=== PATIENT | female | born 1980 | race Caucasian/White ===

== ENCOUNTER → 2024-01-20 13:14 | Outpatient (REF) | payer OTHER, SELFPAY | LOC: WDC 13:14 | PROVIDERS: ATTENDING PHYSICIAN Obstetrics & Gynecology; FAMILY PHYSICIAN Family Medicine | DX: Z12.31 Encounter for screening mammogram for malignant neoplasm of breast (principal) | CPT/HCPCS: 77063; 77067 ==

== ENCOUNTER 2025-01-17 12:39 | Emergency (ER) | payer OTHER, SELFPAY ==
[2025-01-17 12:44] VITALS: BP 152/99
[2025-01-17 13:50] VITALS: BMI 25.2
[2025-01-17 13:53] VITALS: BP 130/93
[2025-01-17 13:56] VITALS: BP 130/93
[2025-01-17 14:01] VITALS: BP 133/87
[2025-01-17] MEDS: TYLENOL 650 MG PO (14:15)
--- NOTE | 2025-01-17 14:15 | ED.GENMED ---
History of Present Illness
General
Chief Complaint: Headache
Source: patient
Exam Limitations: none
Time Seen by Provider: 01/17/25 13:58
Nursing documentation reviewed up to this point in time: agreed with
History of Present Illness
History of Present Illness:
Patient is a 44 year-old female presenting to the emergency department for evaluation of headache. She states that on Monday evening, she hit the back of her head on her son�s bunk bed while trying to get into it. She�s denies any loss of
consciousness. She reports persistent headache which seems migrate around head. Pain has not worsened although has remained constant all week. She reports very mild associated nausea and brain fog today. She denies vomiting, dizziness, ataxia,
dysarthria, or confusion. She is not on any anticoagulation.
Patient contacted her primary care provider who recommended that if her headache persisted throughout the week she come to the emergency department for a CT scan.
Review of Systems
Review of Systems
Allergies reviewed?: Yes
All Other Systems: ROS reviewed and negative except as documented in HPI and ROS
Phy Exam
Physical Exam
Physical Exam:
Vitals: Hypertensive, otherwise stable vital signs. Afebrile
General: Patient is well appearing, no acute distress
Skin: Warm and dry, no rashes or lesions.
Head: Normocephalic, atraumatic. No obvious contusions or lacerations.
Throat: Protecting airway.
Neck: Normal ROM, no cervical spine tenderness
Cardiac: Regular rate and rhythm. No murmurs
Pulm: No apparent respiratory distress. Lungs clear bilaterally.
Abdomen: Nondistended
Extremities: B/l upper and lower extremities atraumatic and nontender with full ROM. Strength 5/5 bilaterally with sensation grossly intact.
Neuro: A&Ox3. CN II-XII grossly intact on examination. Normal finger to nose.
Psychiatric: Normal affect.
Course
Orders/Labs/Results
Orders:
Orders
01/17/25 14:12
CT Head W/o Iv Contrast Urgent
Comment:
Reason For Exam: headache, trauma
Acetaminophen [Tylenol] 650 mg PO NOW STA
01/17/25 14:13
Test Result ONCE
01/17/25 14:17
HCG, Urine Qualitative Screen Urgent
Date Specimen was Collected: 01/17/25
Time Specimen was Collected: 14:13
Vital Signs
Initial and Last Documented VS:
Initial Vital Signs
Temp Pulse Resp BP Pulse Ox
98.4 F 88 18 152/99 97
01/17/25 12:44 01/17/25 12:44 01/17/25 12:44 01/17/25 12:44 01/17/25 12:44
Last Documented Vital Signs
Temp Pulse Resp BP Pulse Ox
98.4 F 73 16 133/87 100
01/17/25 12:44 01/17/25 13:56 01/17/25 13:56 01/17/25 14:01 01/17/25 14:01
MDM/Problems Addressed
Differential Diagnosis Includes:
Not limited to:contusion, abrasion, concussion, intracerebral hemorrhage, etc
MDM/Problems Addressed:
44-year-old female presenting with persistent headache for five days after minor head injury. There was no LOC. No anticoagulation. Vitals and physical exam as above. Patient very well appearing, in no apparent distress. No evidence of traumatic
head or neck injury. She is A&O x3 with no focal neurologic deficits on exam. CT scan negative for acute traumatic injury. 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 Discussed w/ patient and given copy of report to take home. She will
f/u with PCP for further eval if needed.
Workup in ED negative. Ultimately suspect likely minor concussion. Feel stable for discharge home with strict return precautions. Advises rest, Tylenol/Motrin for pain, and PCP follow up. Patient comfortable with plan. All questions answered.
Chronic conditions affecting care:
N/A
Acute Exacerbation and/or Progression of Chronic Illness:
N/A
*Radiology
Radiology exam reviewed: preliminary read by ED provider (head CT reviewed by me - no acute abnormalities) and radiology read reviewed
*Pulse Oximetry
Patient hypoxic: no
*EKG
Interpreted by ED Provider?: NA
*Financial Data Analyst Interpretation
Rate: Financial Data Analyst- N/A
*Critical Care Note
Total Time (30-74mins, 75-104mins- exclusive of procedures): Not Applicable
ED Attending Note
-
Portions of this chart may have been created with voice recognition software.� Occasional wrong word or��sound alike� substitutions may have occurred due to the inherent limitations of voice recognition software.
Discharge Plan
Departure
Patient Disposition: Home (Routine Discharge)
Date of Disposition: 01/17/25
Time of Disposition: 15:41
Patient with high blood pressure during this ER visit?: Yes
Condition: Good
Discharge Problem:
Head injury
Instructions: Concussion, Adult (DC), BLOOD PRESSURE
Prescriptions:
No Action
Control Pill
1 tab PO DAILY
Referrals:
Shannan Alvarado DO [Family Provider] - Follow up in 5-7 days
Activity Restrictions/Additional Instructions:
RETURN TO THE EMERGENCY DEPARTMENT WITH ANY SEVERE HEADACHE OR NECK PAIN, INTRACTABLE NAUSEA/VOMITING, CHANGES IN VISION, PERSISTENT DIZZINESS, CHANGES IN MENTAL STATUS, WORSENING IN CURRENT SYMPTOMS, OR ANY OTHER CONCERN
-As discussed�your CT imaging of your head showed no acute abnormalities today.
- I suspect you likely sustained a mild concussion. You should take Tylenol and/or Motrin as needed for pain. Stay well-hydrated. Get plenty of rest.
- Follow-up with PCP next week for further evaluation/management to ensure that symptoms are improving. There was an incidental finding of a mild Chiari type I malformation on your CT scan. Please discuss with your primary care to determine if
further imaging/management will be needed.
Monitor your symptoms closely and return to the emergency department with any acute worsening/new symptoms or any other concerns
Interventions
Interventions:
*Risk Screen - Suicide Last Done: 01/17/25 12:44
*General Assessment Last Done: 01/17/25 12:44
*Neglect/Abuse Screening Last Done: 01/17/25 12:44
*ED- Fall Risk Assessment Last Done: 01/17/25 13:50
*ED COVID-19 Vaccine History Last Done: 01/17/25 13:50
*Nursing Disposition Last Done: 01/17/25 16:25
ED- Neurological Assessment Last Done: 01/17/25 13:51
ED-Skin Assessment Last Done: 01/17/25 13:51
Discharge Date and Time
Discharge Date/Time: 01/17/25 16:26
Print Language: HEBREW
[2025-01-17 14:33] LABS: HCG, Urine Qualitative Screen Negative
== END 2025-01-17 16:26 | disposition home or self-care (01) ==
LOC: EMR 12:39
PROVIDERS: Physician Assistant; EMERGENCY PHYSICIAN Student in an Organized Health Care Education/Training Program; FAMILY PHYSICIAN Family Medicine
DX: S09.90XA Unspecified injury of head, initial encounter (principal); W22.09XA Striking against other stationary object, initial encounter
CPT/HCPCS: 99285; 70450; 81025; 99284

== ENCOUNTER → 2025-01-25 12:59 | Outpatient (REF) | payer OTHER, SELFPAY | LOC: WDC 12:59 | PROVIDERS: ATTENDING PHYSICIAN Obstetrics & Gynecology; FAMILY PHYSICIAN Family Medicine | DX: Z12.31 Encounter for screening mammogram for malignant neoplasm of breast (principal) | CPT/HCPCS: 77063; 77067 ==